=== PATIENT | male | born 1975 | race Caucasian/White ===

== ENCOUNTER 2016-11-06 18:02 | Emergency (ER) | payer MEDICARE, MEDICAID ==
[~2016-11-06] VITALS: Ht 172.7 cm; Wt 90.9 kg
[~2016-11-06 18:02] MED LIST: ATEN25TA7 PO; CITA20SO PO; DEP250A PO; LEVE500S7 PO
[2016-11-06 18:14] VITALS: BP 142/86; PULSE 96; RESP 16; O2SAT 97
--- NOTE | 2016-11-06 19:30 | ED.REPORT ---
HPI-Trauma Minor / Fall Date of Service Nov 06, 2016 ED Provider: Willie Aguiar MD Pt is a 41 year old male with a hx of organic brain syndrome presenting to the ED after a ground level fall today at 1200. He complains of right wrist and knee pain and an abrasion to his tongue. The pt tripped over his shoe and landed on his knee. Parents report that the pt has an unusually high pain tolerance. Nursing Notes Stated Complaint: FELL Chief Complaint: General Complaint Nursing Notes Reviewed: Yes Allergies: Coded Allergies: No Known Allergies (Verified , 02/02/14) Scheduled Atenolol-Expunged Drug, Do Not Renew! (Atenolol-Expunged Drug, Do Not Renew!) 25 Mg Tablet 25 MG PO AM 9CC ELIXER=25MG Citalopram Oral Soln (Citalopram Oral Soln) 20 Mg/10 Ml Solution 20 MG PO DAILY Divalproex Sod-Expunged Drug, Do Not Renew! (Divalproex Sod-Expunged Drug, Do Not Renew!) 250 Mg Tablet.dr 350 MG PO AM 6CC ELIXER = 350MG Levetiracetam (Levetiracetam) 500 Mg/5 Ml Solution 500 MG PO BID General Time Seen by MD: 19:28 Chief Complaint Fall Hx Obtained From: Other family... (Mother, Father) Arrived By: Walk-in Onset Occurred: 5 - 8 hours ago Symptom Duration: Since onset Caused by: Fall on ground Context: Occurred at: Workplace Location: Knee right Mouth Wrist right Quality: Painful Severity: Current: Mild Severity: Maximum: Moderate Recent Healthcare: No recent doctor visit, No recent hospitalization Similar Sx Previous: No Risk Factors IC Bleed Risk Stratification Risk factors reviewed, No risk factors Past Medical History Past Medical History Organic brain syndrome, congenital, nonsyndromic seizure disorder Benign heart murmur Hypertension Past Surgical History denies Family History Noncontributory Smoking History Unknown if Ever Smoker Social History Other Social History: Lives with parents, Local resident Ambulatory Status Independent Review of Systems Ears / Nose / Throat: Reports: Tongue pain Musculoskeletal: Reports: Extremity pain, Extremity swelling, Joint pain, Joint swelling Complete sys rev & neg: except as marked. Physical Exam Initial Vital Signs Vital Signs (First) Date Time Temp Pulse Resp B/P Pulse Ox O2 Delivery O2 Flow Rate FiO2 11/06/16 18:14 37.0 96 16 142/86 97 Initial VS: Reviewed Head / Eyes: Atraumatic, Normocephalic, PERRL Respiratory: No respiratory distress Abdomen / GI: No distention Skin: Warm, Dry, No cyanosis Neurologic: Alert, Oriented, Nonfocal Psychiatric: Mood/affect normal, Behavior normal, Normal thought content General/Constitutional: Awake, Alert, Well appearing ENT: Airway patent, Mucous membranes moist Right side of top of tongue 1 cm laceration, gaping mildly. Not bleeding now. Bite on tip of tongue. Cardiovascular: Cap refill not delayed Upper Extremity / MS: No deformity, Neurologic intact, Vascular intact Moving thumb well. Cap refill instant. Swelling over distal radius. No definite deformity. Interpretation & Diagnostics X-Ray Interpretation Xray Interpretation: IMPRESSION: Lucent focus within the distal radius, possibly subchondral cyst or osteopenic region. Please correlate clinically for point tenderness and if necessary further assessment with MRI could be performed in the nonemergent setting. No acute fracture. Dictated by: Cesar Noe M.D. on 11/06/2016 at 20:44 X-Ray Ordered: Wrist right Interpretation / Wet Read by: Interpret - Radiologist Procedures Splint Application - Fx Mgt Splint Application- Fx Mgt: Velcro splint applied to right wrist for comfort, tolerated well distal neurovascular exam intact post- Procedure Performed by: Upholstery Covers Inspector, Under my direct supervis Re-Eval/Medical Decision Re-Evaluation/Progress : Time of Eval: 21:02 Patient Status: Condition improved Re-Evaluation/Progress Note: Discussed x ray results and plan for discharge. Pt understands and agrees with plan. Counseled Regarding: Diagnosis, Lab results, Need for follow-up, When/why to return to ED Discharge & Departure Impression: Primary Impression: Right wrist sprain Encounter type: initial encounter Qualified Code: S63.501A - Unspecified sprain of right wrist, initial encounter Additional Impression: Tongue laceration Encounter type: initial encounter Qualified Code: S01.512A - Laceration without foreign body of oral cavity, initial encounter Disposition: Home Discharge Condition All VS Reviewed: Yes Condition: Improved Additional Instructions: Emergency Department evaluation included review, examination and x-ray of the right wrist. No fracture of the right wrist is seen. There does appear to be a cyst in the radius, or the bones of the forearm near the wrist. This is an Incidental finding and not related to an injury today. We advise discussing this with his primary care doctor at next opportunity. A splint is applied to the wrist for comfort. They be removed as pain improves. Icing the wrist 2-3 times a day for 10-15 minutes may also be helpful, keep ice wrapped in a towel. Ibuprofen as needed for pain. Soft diet, rinse mouth with dilute salt solution such as a pinch of salt and a cup of water after eating. A tetanus booster was given today. Recheck with primary care in 5-6 days if symptoms have not resolved completely. Referrals: Juve Swartz MD (PCP) Scribe Attestation Portions of this note were transcribed by Jimena Osborne. I, Dr. Aguiar personally performed the history, physical exam and medical decision-making; I reviewed and confirmed the accuracy of the information in the transcribed note. Signed by : Reji Schmidt, 11/06/2016 and 2114. copies to: Juve Swartz MD, Donald L MD Nov 06, 2016 19:30 JIMENA OSBORNE Nov 06, 2016 19:52
[2016-11-06] MEDS ORDERED: HYDROcodone-APAP 7.5-325 mg/15 mL 15 mL Solution PO ONE (19:45)
[2016-11-06] MEDS ORDERED: TdaP Vaccine 0.5 mL Inj IM ONE (19:45)
--- NOTE | 2016-11-06 20:49 | DRSVH ---
PROCEDURE: X-RAY RIGHT WRIST, TWO VIEWS ([id number]) INDICATIONS: deformed/painful TECHNIQUE: 2 views of the wrist were acquired. COMPARISON: None. FINDINGS: Bones: No fractures or dislocations. Lucent focus within the distal radius measuring approximately 1 .5 cm which could represent cyst or focal osteopenia. Soft tissues: No suspicious soft tissue calcifications. IMPRESSION: Lucent focus within the distal radius, possibly subchondral cyst or osteopenic region. Please correla te clinically for point tenderness and if necessary further assessment with MRI could be performed in the nonemergent setting. No acute fracture. Dictated by: Cesar Noe M.D. on 11/06/2016 at 20:44 Approved by: Cesar Noe M.D. on 11/06/2016 at 20:47
== END 2016-11-06 21:19 | disposition home or self-care (01) ==
LOC: SED 18:02
DX: S01.512A Laceration without foreign body of oral cavity, initial encounter (principal); S63.501A Unspecified sprain of right wrist, initial encounter; W01.0XXA Fall on same level from slipping, tripping and stumbling without subsequent striking against object, initial encounter; Y93.89 Activity, other specified; Y92.69 Other specified industrial and construction area as the place of occurrence of the external cause; Y99.0 Civilian activity done for income or pay; M25.561 Pain in right knee; I10 Essential (primary) hypertension; Z23 Encounter for immunization